=== PATIENT | female | born 1965 | race Caucasian/White ===

== ENCOUNTER 2017-03-13 08:42 | Emergency (ER) | payer OTHER ==
[~2017-03-13] VITALS: Ht 157.5 cm; Wt 100.0 kg
[2017-03-13] MEDS ORDERED: PROMETHAZINE 25 MG/ML, 1ML ONE (09:20)
[2017-03-13] MEDS ORDERED: SODIUM CHLORIDE 0.9% 1,000 ML IV ONE (09:26)
[2017-03-13] MEDS ORDERED: MAALOX/HYOSCYAMINE/LIDOCAINE 45 ML BTL PO ONE (09:30)
[2017-03-13] MEDS ORDERED: FAMOTIDINE 20 MG/2 ML IVP ONE (09:30)
[2017-03-13] MEDS ORDERED: SODIUM CHLORIDE 0.9% 1,000ML IVBOLUS ONE (09:30)
[2017-03-13] MEDS ORDERED: LORazepam 2 MG/ML, 1ML IVPush ONE (09:30)
[2017-03-13] MEDS ORDERED: PROMETHAZINE 25 MG/ML, 1ML IM ONE (09:30)
[2017-03-13] MEDS ORDERED: MAALOX/HYOSCYAMINE/LIDOCAINE 45 ML BTL ONE (09:36)
[2017-03-13] MEDS ORDERED: MORPHINE SULFATE 4 MG/ML, 1ML ONE ×2 (09:36→10:27)
[2017-03-13] MEDS ORDERED: LORazepam 2 MG/ML, 1ML ONE (09:37)
[2017-03-13] MEDS ORDERED: FAMOTIDINE 20 MG/2 ML ONE (09:37)
[2017-03-13] MEDS: MORPHINE SULFATE 4 MG/ML, 1ML IVPush PRN ×2 (09:51→10:29)
[2017-03-13 10:26] LABS: ASPARTATE AMINO TRANSFERASE 26 U/L (15-37); BLOOD UREA NITROGEN 7 mg/dL (7-18)
[2017-03-13 10:32] LABS: IS PT STATUS REG ER OR PRE ER? YES
[2017-03-13 12:52] VITALS: BP 130/88
== END 2017-03-13 12:55 | disposition home or self-care (01) ==
LOC: ED 09:38
DX: K52.9 Noninfective gastroenteritis and colitis, unspecified (principal); D72.829 Elevated white blood cell count, unspecified; E27.8 Other specified disorders of adrenal gland
CPT/HCPCS: 36415; 71010; 74177; 80053; 81003; 83605; 83690; 84484; 85025; 85610; 87040; 93005; 96361; 96372; 96374; 96375; 96376; 99285; J2060; J2550; J7030; S0028